=== PATIENT | male | born 1990 | race Caucasian/White ===

== ENCOUNTER 2018-07-31 01:10 | Emergency (ER) | payer MEDICAID ==
--- NOTE | 2018-07-31 01:39 | ED ---
Dizziness HPI - General Chief Complaint: Dizziness Stated Complaint: Dizziness Time Seen by Provider: 07/31/18 01:39 Source: patient Mode of arrival: wheelchair Limitations: no limitations - History of Present Illness Initial Comments: Rodlofo is a previously healthy 28-year-old male who presents the ED today via private vehicle for evaluation of dizziness, feeling as though the room is spinning around him and nausea. Patient reports he had the symptoms approximately 2 weeks ago and was evaluated at an urgent care where he was told he had cerumen impaction, had his ears irrigated and was treated with Zofran. Reports that he felt better after that. Patient states that today he woke up and upon standing felt as though the room was spinning around him. Patient reports that if he lays flat or doesn't move that he feels well however upon turning his head he feels that the room begins to spin around him. Patient does report that throughout this year he has suffered with sinus problems including nasal congestion and drainage, he has no history of any ear nose and throat problems, he's never followed with an ENT or an technician helper instrument. He' s not taking any [id number] medications for this. He denies any recent head traumas or injuries. Denies any smoking or risk factors for stroke. - Related Data Previous Rx's Medication Instructions Recorded Fluticasone Nasal [place] [Flonase 1 spray EA NOSTRIL DAILY #1 bottle 07/31/18 Nasal [place]] Loratadine [Claritin] 10 mg PO DAILY #30 tab 07/31/18 Meclizine [Antivert] 25 mg PO TID #30 tab 07/31/18 Allergies Allergy/AdvReac Type Severity Reaction Status Date / Time No Known Allergies Allergy Verified 07/31/18 01:17 Review of Systems ROS Statement: Those systems with pertinent positive or pertinent negative responses have been documented in the HPI. ROS Other: All systems not noted in ROS Statement are negative. Past Medical History Past Medical History: No Reported History History of Any Multi-Drug Resistant Organisms: None Reported Past Surgical History: No Surgical Hx Reported Past Psychological History: No Psychological Hx Reported Smoking Status: Never smoker Past Alcohol Use History: None Reported Past Drug Use History: None Reported General Exam - General Exam Comments Initial Comments: GENERAL: Patient is well-developed and well-nourished. Patient is nontoxic and well-hydrated and is in mild distress. HENT: Normocephalic, Atraumatic. Neck is soft and supple. No significant lymphadenopathy is noted. Oropharynx is clear. Moist mucous membranes. Neck has full range of motion without eliciting any pain. TMs with effusion bilaterally, no erythema, no purulence EYES: The sclera were anicteric and conjunctiva were pink and moist. Extraocular movements were intact and pupils were equal round and reactive to light. Horizontal nystagmus noted upon turning the head to the right Eyelids were unremarkable. PULMONARY: Unlabored respirations. Good breath sounds bilaterally. No audible rales rhonchi or wheezing was noted. CARDIOVASCULAR: There is a regular rate and rhythm without any murmurs gallops or rubs. ABDOMEN: Soft and nontender with normal bowel sounds. SKIN: Skin is clear with no lesions or rashes and otherwise unremarkable. NEUROLOGIC: Patient is alert and oriented x3. Cranial nerves II through XII are grossly intact. Motor and sensory are also intact. Normal speech, volume and content. Symmetrical smile. Normal finger to nose testing, normal gait MUSCULOSKELETAL: Normal extremities with adequate strength and full range of motion. No lower extremity swelling or edema. No calf tenderness. LYMPHATICS: No significant lymphadenopathy is noted PSYCHIATRIC: Normal psychiatric evaluation. Limitations: no limitations Limitations: no limitations Course Vital Signs 07/31/18 01:13 Temperature 97.6 F Pulse Rate 83 Respiratory 18 Rate Blood Pressure 146/80 O2 Sat by Pulse 100 Oximetry EKG Findings - EKG Comments: EKG Findings:: EKG obtained at 1:31 AM, rate is 63, rhythm is sinus, there is a normal axis, normal intervals, ME 116, QRS is 98, QTC is 395. There are no acute ST elevations or depressions no evidence of acute ischemia or infarction. Medical Decision Making - Medical Decision Making The patient was seen and evaluated, history is obtained from the patient Patient has reproducible horizontal nystagmus upon turning the head to the right which were reviewed reproduces his symptoms No symptoms when laying flat Otherwise normal neuro exam EKG unremarkable Meclizine and Zofran ordered for symptoms Patient was reevaluated after medications, reports significant improvement in his symptoms At this time I feel the patient is stable for discharge home, I recommended the patient be given appropriate treatment of his seasonal ALLERGIES, take meclizine as needed and follow up with primary care physician or ENT. Patient doesn't have a listed primary care physician, [facility] He'll be referred to Dr. Gudino for ENT. All questions pertaining care were answered best my ability patient was discharged home in stable condition. Disposition Clinical Impression: Peripheral vertigo Disposition: HOME SELF-CARE Condition: Stable Instructions: Benign Paroxysmal Positional Vertigo (ED) Prescriptions: Fluticasone Nasal [place] [Flonase Nasal [place]] 1 spray EA NOSTRIL DAILY #1 bottle Loratadine [Claritin] 10 mg PO DAILY #30 tab Meclizine [Antivert] 25 mg PO TID #30 tab Is patient prescribed a controlled substance at d/c from ED?: No Referrals: None,Stated [Primary Care Provider] - 1-2 days [facility],Damaris Farias [NON-STAFF] - 1-2 days Lan Gudino MD [STAFF PHYSICIAN] - 1-2 days (If vertigo persists or returns) Time of Disposition: 03:09
[2018-07-31] MEDS ORDERED: ONDANSETRON 4 MG ODT STARTER PACK 2 TAB BTL PO STA (02:04)
[2018-07-31] MEDS ORDERED: MECLIZINE 12.5 MG TAB PO STA (02:04)
[2018-07-31 03:29] VITALS: BP 133/80; PULSE 80; RESP 16; TEMP 97
== END 2018-07-31 03:29 | disposition home or self-care (01) ==
LOC: EC 01:10
DX: H81.393 Other peripheral vertigo, bilateral (principal); R09.81 Nasal congestion
CPT/HCPCS: 99284; S0119

== ENCOUNTER 2019-08-29 11:47 | Emergency (ER) | payer MEDICAID ==
[2019-08-29 12:36] VITALS: BP 132/91; PULSE 75; RESP 18; TEMP 98
--- NOTE | 2019-08-29 13:17 | ED ---
Skin/Abscess/FB HPI - General Chief complaint: Skin/Abscess/Foreign Body Stated complaint: Rash Time Seen by Provider: 08/29/19 12:55 Source: patient Mode of arrival: ambulatory Limitations: no limitations - History of Present Illness Initial comments: Patient is a 29-year-old male presents to emergency room with a chief complaint of a rash. Patient reports that Sunday he developed a rash which initially started on his fingers and now they're also On his elbows. Patient reports are not itching or painful. Denies any discharge. Denies a night sweats fevers or chills. Denies any swelling of the fingers. Denies any history of arthritis. Patient is unaware of previous exposure to herpes simplex. Denies taking any medication to alleviate the symptoms. - Related Data Previous Rx's Medication Instructions Recorded Fluticasone Nasal [place] [Flonase 1 spray EA NOSTRIL DAILY #1 bottle 07/31/18 Nasal [place]] Loratadine [Claritin] 10 mg PO DAILY #30 tab 07/31/18 Meclizine [Antivert] 25 mg PO TID #30 tab 07/31/18 predniSONE 50 mg PO DAILY #5 tab 08/29/19 Allergies Allergy/AdvReac Type Severity Reaction Status Date / Time No Known Allergies Allergy Verified 08/29/19 12:36 Review of Systems ROS Statement: Those systems with pertinent positive or pertinent negative responses have been documented in the HPI. ROS Other: All systems not noted in ROS Statement are negative. Past Medical History Past Medical History: No Reported History History of Any Multi-Drug Resistant Organisms: None Reported Past Surgical History: No Surgical Hx Reported Past Psychological History: No Psychological Hx Reported Smoking Status: Never smoker Past Alcohol Use History: None Reported Past Drug Use History: None Reported General Exam Limitations: no limitations General appearance: alert, in no apparent distress Head exam: Present: atraumatic, normocephalic, normal inspection Eye exam: Present: normal appearance Pupils: Present: normal accommodation ENT exam: Present: normal exam, mucous membranes moist Neck exam: Present: normal inspection, full ROM Respiratory exam: Present: normal lung sounds bilaterally Cardiovascular Exam: Present: regular rate, normal rhythm, normal heart sounds Extremities exam: Present: normal inspection, full ROM Back exam: Present: normal inspection, full ROM Neurological exam: Present: alert, oriented X3 Psychiatric exam: Present: normal affect, normal mood Skin exam: Present: warm, dry, intact, normal color, rash (Nodular type lesions, oval in shape measuring approximately 3 mm in diameter on fingers of bilateral hands and bilateral elbows.) Course Vital Signs 08/29/19 08/29/19 12:34 14:12 Temperature 98 F 98 F Pulse Rate 75 75 Respiratory 18 18 Rate Blood Pressure 132/91 132/91 O2 Sat by Pulse 99 99 Oximetry Medical Decision Making - Medical Decision Making Patient is a 29-year-old male presenting to emergency Department with chief complaint of a rash. Breast started 3 days ago and is only located to the hands and bilateral elbows. It is nodular, and about 3 mm in diameter. It is not itchy or painful. No fever or chills. Vaccinations up-to-date. Patient rep orts he recently got over a common cold for the rash started. I suspect this is a viral exanthem. Patient will be discharged with prednisone course. Dr. Valiente also examined the patient and his agreement with the treatment plan. Patient advised to follow-up with primary care and possibly obtain dermatology referral. Strict return partners were thoroughly discussed the patient was understanding and agreeable. Case discussed with physician. Disposition Clinical Impression: Viral exanthem, unspecified Disposition: HOME SELF-CARE Condition: Stable Instructions (If sedation given, give patient instructions): Viral Exanthem (ED) Additional Instructions: Please follow with primary care. Take prescribed medication as directed. Please return to emergency department if symptoms worsen. Prescriptions: predniSONE 50 mg PO DAILY #5 tab Is patient prescribed a controlled substance at d/c from ED?: No Referrals: None,Stated [Primary Care Provider] - 1-2 days Time of Disposition: 13:44
== END 2019-08-29 14:12 | disposition home or self-care (01) ==
LOC: EC 11:47
DX: B09 Unspecified viral infection characterized by skin and mucous membrane lesions (principal)
CPT/HCPCS: 99282

== ENCOUNTER → 2021-08-16 | Outpatient (CLI) | payer MEDICAID ==
--- NOTE | 2021-08-17 04:21 | MR ---
EXAMINATION TYPE: MR iac wo/w con DATE OF EXAM: 08/16/2021 COMPARISON: None HISTORY: Hearing loss CONTRAST: Standard multiplanar, multisequence MRI departmental protocol images were obtained without contrast a nd with 10 mL intravenous gadolinium contrast. Ventricles and sulci appear normal. There is no mass effect nor midline shift. There is no sign of in tracranial hemorrhage. Hoffman-white matter structures have normal signal pattern. There is no evidence of cerebral edema. Diffusion images show no evidence of an acute infarct. The internal auditory canals appear normal. There is no evidence of cerebellopontine angle mass. Acou stic nerve and vestibular nerves appear normal. The temporal bones show normal signal pattern. There is no evidence of mastoiditis. Brainstem appears normal. Corpus callosum appears normal. There is no evidence of orbital mass. The contrast images show no pathologic enhancement. There is normal enhance ment of the venous sinuses. Sella turcica appears normal. IMPRESSION: Negative MR scan of the brain. No evidence of posterior fossa abnormality.
== END | disposition home or self-care (01) ==
LOC: RADMRIMAIN 15:00
PROVIDERS: ATTEND Otolaryngology Otolaryngology/Facial Plastic Surgery
DX: H91.90 Unspecified hearing loss, unspecified ear (principal)
CPT/HCPCS: 70553; A9585